=== PATIENT | female | born 1970 | race American Indian/Alaskan Native ===

== ENCOUNTER 2018-07-01 14:38 | Emergency (ER) | payer OTHER ==
--- NOTE | 2018-07-01 16:19 | Emergency Department Report ---
Upper Extremity - [facility] Chief Complaint: Extremity Injury, Upper Stated Complaint: (R) ARM PAIN Time Seen by Provider: 07/01/18 15:54 Upper Extremity: Right Elbow, Right Forearm Occurred When: >5 Days Severity: moderate Symptoms: Yes Pain with Movement, Yes Limited Range of Movement, No Deformity, No Numbness, No Weakness, No Swelling, No Bruising/Ecchymosis, No Laceration or Abrasion Other History: Patient is a 47-year-old female Emergency room with right elbow pain 1 month. He denies trauma. Patient denies injury. Patient states using her arms and hands a lot at work. Patient does states she has repetitive stress. Patient states the pain is 8 out of 10. Patient states the pain is worse with working and lifting and better with rest. She denies chest pain. Patient denies fever and chills. ED Review of Systems ROS: Stated complaint: (R) ARM PAIN Other details as noted in HPI Constitutional: denies: chills, fever Eyes: denies: eye pain, eye discharge, vision change ENT: denies: ear pain, throat pain Respiratory: denies: cough, shortness of breath, wheezing Cardiovascular: denies: chest pain, palpitations Endocrine: no symptoms reported Gastrointestinal: denies: abdominal pain, nausea, diarrhea Genitourinary: denies: urgency, dysuria, discharge Musculoskeletal: denies: back pain, joint swelling, arthralgia Skin: denies: rash, lesions Neurological: denies: headache, weakness, paresthesias Psychiatric: denies: anxiety, depression Hematological/Lymphatic: denies: easy bleeding, easy bruising ED Past Medical Hx - Past Medical History Previous Medical History?: No - Surgical History Past Surgical History?: Yes Additional Surgical History: tubiligation, hysterectomy, fx right arm - Family History Family history: no significant - Social History Smoking Status: Never Smoker Substance Use Type: None Upper Extremity Exam - Exam General: Vital signs noted. No distress. Alert and acting appropriately. Head and Torso: No HEENT Abnormality, No Neck Tenderness, No Chest/Lungs Abnormality, No Abdominal Tenderness, No Back Tenderness Shoulder Exam: Yes Normal Range of Motion in Shoulder, No Shoulder Tenderness, No Clavicle Tenderness, No Shoulder Deformity, No AC Joint Tenderness Arm Exam: No Arm/Humerus Tenderness, No Arm Deformity Elbow: Yes Elbow Tenderness (patient tender over the medial condyle), No Normal Range of Motion in Elbow, No Elbow Deformity Forearm: No Forearm Tenderness, No Forearm Deformity, No Pain with Pronation, No Pain with Supination Wrist: Yes Normal ROM in Wrist, No Wrist Tenderness, No Wrist Deformity, No Snuffbox Tenderness, No Pain with Axial Thumb Compression Hand: Yes Normal ROM in Digit(s), No Hand Tenderness, No Hand Deformity, No Digit Tenderness, No Digit(s) Deformity, No Tendon Dysfunction CMS Exam: No Broken Skin, No Normal Distal Pulses, No Normal Capillary Refill, No Normal Distal Sensation ED Course Vital Signs 07/01/18 07/01/18 14:44 14:52 Temperature 98.6 F 98.6 F Pulse Rate 64 64 Respiratory 18 16 Rate Blood Pressure 134/87 Blood Pressure 134/87 [Left] O2 Sat by Pulse 100 100 Oximetry - Reevaluation(s) Reevaluation #1: Initial exam done. Patient clinical findings consistent with tennis elbow or lateral epicondylitis. Patient pain is been going on for 1 month. Patient instructed to follow up with primary care and orthopedist. Patient struck to take ibuprofen and Tylenol. Patient also given information on the braces for her condition. Patient given discharge instructions. Patient stable for discharge. Patient voiced understanding of all discharge instructions. Patient at this time does not have emergent medical condition 07/01/18 16:17 ED Medical Decision Making - Medical Decision Making Patient is a 47-year-old female that presents emergent with right elbow and proximal forearm pain for 4 weeks. Patient has repetitive stress at work. Patient clinical findings consistent with tennis elbow or lateral epicondylitis. Patient pain is been going on for 1 month and patient denies trauma. Patient does not require any x-rays or further evaluation in the ER. Patient instructed to follow up with primary care and orthopedist. Patient struck to take ibuprofen and Tylenol. Patient also given information on the braces for her condition. Patient given discharge instructions. Patient stable for discharge. Patient voiced understanding of all discharge instructions. Patient at this time does not have emergent medical condition - Differential Diagnosis elbow pain. Forearm pain. Tennis elbow. Golfer's elbow Critical care attestation.: If time is entered above; I have spent that time in minutes in the direct care of this critically ill patient, excluding procedure time. ED Disposition Clinical Impression: Lateral epicondylitis Qualifiers: Laterality: right Qualified Code(s): M77.11 - Lateral epicondylitis, right elbow Disposition: TO HOME OR SELFCARE Is pt being admited?: No Does the pt Need Aspirin: No Condition: Stable Instructions: Tennis Elbow (ED) Additional Instructions: Patient to follow up with primary care in 2-3 days. Patient to see orthopedist in 2-3 days. Patient to return to ER if condition worsens. Patient to buy a tennis elbow brace as shown in ER. Patient to take Tylenol or ibuprofen when necessary for pain. Patient to rest. Referrals: YAHAIRA SPENCER MD [Primary Care Provider] - 2-3 Days TUSHAR GARZA MD [Staff Physician] - 2-3 Days Time of Disposition: 16:21
== END 2018-07-01 16:27 | disposition home or self-care (01) ==
LOC: ED 14:38
CPT/HCPCS: 99282